=== PATIENT | female | born 1955 | race Caucasian/White ===

== ENCOUNTER 2023-01-29 10:54 | Outpatient (REF) | payer MEDICARE, SELFPAY ==
[2023-01-29 15:54] LABS: ALT 110 U/L (14-59); AST 152 U/L (15-37); Albumin 4.4 g/dL (3.4-5.0); Alkaline Phosphatase 94 U/L (46-116); Anion Gap 12.9 mmol/L (3-11); BUN 12 mg/dL (7-18); Bilirubin, Total 0.7 mg/dL (0.2-1.0); CO2 25.1 mmol/L (21.0-32.0); CREATININE 0.7 mg/dL (0.55-1.02); Chloride 104 mmol/L (98-107); Estimated GFR 95.32 (mL/min/1.73m2); Glucose 88 mg/dL (74-106); Potassium 3.8 mmol/L (3.5-5.1); Sodium 142 mmol/L (136-145); Total Protein 8.3 g/dL (6.4-8.2)
[2023-01-29 16:10] LABS: Vitamin D 25 Total 93.2 ng/mL (30-100)
[2023-01-30 09:31] LABS: Hepatitis C Ab w Rflx HCV PCR Negative (Negative)
== END 2023-01-29 10:55 | disposition home or self-care (01) ==
LOC: NCHCN 10:54
PROVIDERS: Visit Provider Family Medicine
DX: R79.89 Other specified abnormal findings of blood chemistry (principal); M85.88 Other specified disorders of bone density and structure, other site; Z11.59 Encounter for screening for other viral diseases
CPT/HCPCS: 80053; 82306; 86803

== ENCOUNTER 2023-08-05 15:17 | Outpatient (REF) | payer MEDICARE, SELFPAY ==
[2023-08-05 21:12] LABS: ALT 42 U/L (14-59); AST 44 U/L (15-37); Albumin 4.1 g/dL (3.4-5.0); Alkaline Phosphatase 79 U/L (46-116); Anion Gap 8.6 mmol/L (3-11); BUN 12 mg/dL (7-18); Bilirubin, Total 0.5 mg/dL (0.2-1.0); CO2 29.4 mmol/L (21.0-32.0); CREATININE 0.8 mg/dL (0.55-1.02); Calcium 9.7 mg/dL (8.5-10.1); Chloride 104 mmol/L (98-107); Estimated GFR 80.71 (mL/min/1.73m2); Glucose 90 mg/dL (74-106); Potassium 4.4 mmol/L (3.5-5.1); Sodium 142 mmol/L (136-145); Total Protein 7.4 g/dL (6.4-8.2)
== END 2023-08-05 15:18 | disposition home or self-care (01) ==
LOC: NCHCN 15:17
PROVIDERS: PCP Family Medicine; Visit Provider Family Medicine
DX: R94.5 Abnormal results of liver function studies (principal)
CPT/HCPCS: 80053

== ENCOUNTER 2024-01-27 18:39 | Outpatient (REF) | payer MEDICARE, SELFPAY ==
[2024-01-27 17:20] LABS: ALT 90 U/L (14-59); AST 118 U/L (15-37); Albumin 4.3 g/dL (3.4-5.0); Alkaline Phosphatase 96 U/L (46-116); Bilirubin, Total 0.71 mg/dL (0.2-1.0); Calculated LDL 161 mg/dL (<100); Cholesterol 274 mg/dL (<200); HDL Cholesterol 103 mg/dL (40-60); Triglyceride 54 mg/dL (<150)
[2024-01-27 17:43] LABS: Bilirubin, Direct 0.2 mg/dL (0.0-0.2)
== END 2024-01-27 18:40 | disposition home or self-care (01) ==
LOC: NCHCN 18:39
PROVIDERS: PCP Family Medicine; Visit Provider Family Medicine
DX: R94.5 Abnormal results of liver function studies (principal)
CPT/HCPCS: 80061; 80076

== ENCOUNTER 2025-03-15 21:16 | Outpatient (REF) | payer MEDICARE, SELFPAY ==
[2025-03-15 15:49] LABS: Iron 126 ug/dL (50-170); Total Iron Binding Capacity 334 ug/dL (250-425); Transferrin Sat 38 % (15-50)
[2025-03-15 15:52] LABS: TSH 2.29 uIU/mL (0.55-4.78)
[2025-03-15 15:53] LABS: Ferritin 268 ng/mL (7-271)
[2025-03-16 08:56] LABS: HBs Antibody, Quant <3.1 mIU/mL (See Note); Hepatitis B Surface Ab Negative (See Note)
[2025-03-16 09:41] LABS: Hep B Core Antibody Negative (Negative)
== END 2025-03-15 21:17 | disposition home or self-care (01) ==
LOC: NCHCN 21:16
PROVIDERS: PCP Family Medicine; Visit Provider Family Medicine
DX: R94.5 Abnormal results of liver function studies (principal); E78.5 Hyperlipidemia, unspecified; Z00.00 Encounter for general adult medical examination without abnormal findings
CPT/HCPCS: 86704; 86706; 87340; 82728; 83540; 83550; 84443